=== PATIENT | female | born 1975 | race Two or more races ===

== ENCOUNTER 2024-08-27 19:48 | Emergency (ER) | payer OTHER ==
[~2024-08-27] VITALS: Ht 167.6 cm; Wt 72.6 kg
[2024-08-27] MEDS ORDERED: CANDESARTAN CIL32 MG PO (20:05)
[2024-08-28] MEDS ORDERED: CLINDAMYCIN PHOSPHATE 150 MG/ML (600mg) IM STA (04:16)
[2024-08-28] MEDS ORDERED: LIDOCAINE HCL 4% Topic SOLUTION TOP STA (04:18)
== END 2024-08-28 04:35 | disposition home or self-care (01) ==
LOC: ER 19:50
DX: J06.9 Acute upper respiratory infection, unspecified (principal); Z88.0 Allergy status to penicillin